=== PATIENT | female | born 1980 | race African-American/Black ===

== ENCOUNTER 2021-01-10 15:18 | Emergency (ER) | payer SELFPAY ==
[~2021-01-10] VITALS: Ht 160 cm; Wt 131.8 kg
[2021-01-10] MEDS ORDERED: FAMO20 PO (15:24)
[2021-01-10 15:54] VITALS: BP 136/84
[2021-01-10] MEDS ORDERED: DiphenhydrAMINE HCL 50 MG/ML VIAL IVP ONE (16:15)
[2021-01-10] MEDS ORDERED: ONDANSETRON HCL 4 MG/2 ML VIAL IVP ONE (16:15)
[2021-01-10] MEDS ORDERED: ACETAMINOPHEN 1000 MG/ISO-OSM 100 ML IV ONE (16:15)
[2021-01-10] MEDS ORDERED: SODIUM CHLORIDE 0.9% 1,000 ML IV ONE (16:15)
[2021-01-10 16:17] LABS: APPEARANCE,URINE CLEAR (CLEAR); BILIRUBIN,URINE NEGATIVE (NEGATIVE); GLUCOSE, URINE (UA) NEGATIVE (NEGATIVE); KETONES,URINE NEGATIVE (NEGATIVE); LEUKOCYTE ESTERASE ,URINE NEGATIVE (NEGATIVE); NITRATE,URINE NEGATIVE (NEGATIVE); OCCULT BLOOD,URINE NEGATIVE (NEGATIVE); PH,URINE 7.5 (5.0-8.0); PROTEIN,URINE NEGATIVE (NEGATIVE); UROBILINOGEN,URINE 0.2 mg/dL (<=1.0)
[2021-01-10] MEDS ORDERED: ACETAMINOPHEN 500 MG TABLET PO ONE (18:00)
[2021-01-10] MEDS ORDERED: DiphenhydrAMINE HCL 50 MG CAPSULE PO ONE (18:00)
[2021-01-10] MEDS ORDERED: ONDANSETRON HCL 4 MG TABLET PO ONE (18:00)
== END 2021-01-10 17:39 | disposition left against medical advice (07) ==
LOC: EMS 15:18
DX: L29.9 Pruritus, unspecified (principal); R22.0 Localized swelling, mass and lump, head; R10.31 Right lower quadrant pain; R11.2 Nausea with vomiting, unspecified; T50.905A Adverse effect of unspecified drugs, medicaments and biological substances, initial encounter; Y92.89 Other specified places as the place of occurrence of the external cause
CPT/HCPCS: 81003; 99284; Q0162; J0131; J1200; J2405; J7030